=== PATIENT | female | born 1970 | race Caucasian/White ===

== ENCOUNTER → 2020-03-16 15:49 | Outpatient (CLI) | payer MEDICAID, SELFPAY ==
[2020-03-16 16:12] LABS: Basophils # 0.1 K/mm3 (0-0.2); Eosinophils # 0.2 K/mm3 (0.0-0.4); Eosinophils % 1.8 % (0.1-12.0); Hematocrit 51.8 % (37.0-47.0); Hemoglobin 16.8 g/dL (12.2-16.2); Lymphocytes # 2.6 K/mm3 (0.7-4.5); Lymphocytes % 24.2 % (10-50); Mean Corpuscular HGB Conc 32.4 g/dL (31.8-35.4); Mean Corpuscular Hemoglobin 29.7 pg (27.0-31.2); Mean Corpuscular Volume 91.7 fl (81-99); Mean Platelet Volume 8.2 fl (7.4-10.4); Monocytes # 0.7 K/mm3 (0.1-1.0); Monocytes % 6.3 % (1.7-9.3); Neutrophils # 7.3 K/mm3 (1.8-7.8); Neutrophils % 66.7 % (37.0-80.0); Platelet Count 363 K/mm3 (142-424); Red Blood Count 5.64 M/mm3 (4.20-5.40); Red Cell Distribution Width 13.1 % (11.5-17.5); White Blood Count 10.9 K/mm3 (4.8-10.8)
[2020-03-16 16:28] LABS: Alanine Aminotransferase 34 U/L (12-78); Albumin Level 4.5 g/dl (3.5-5.0); Albumin/Globulin Ratio 1.6 (1.1-1.8); Alkaline Phosphatase 126 U/L (38-126); Anion Gap 12.6 mEq/L (5-15); Aspartate Amino Transferase 37 U/L (14-36); Bilirubin,Total 0.5 mg/dl (0.2-1.3); Blood Urea Nitrogen 7 mg/dl (7-17); Calcium 9.7 mg/dl (8.4-10.2); Carbon Dioxide 26 mmol/L (22.0-30.0); Chloride 106 mmol/L (98-107); Chol/HDL Ratio 6.7 (1-3.5); Cholesterol 233 mg/dl (140-200); Estimated Glomerular Filt Rate 67 ml/min (>60); GFR (African American) 81 ML/MIN (>60); Globulin 2.8 g/dL (1.3-3.2); Glucose 107 mg/dl (74-100); HDL Cholesterol 35 mg/dl (40-60); Potassium 4.6 mmoL/L (3.5-5.1); Sodium 140 mmol/L (136-145); Total Protein,Serum 7.3 g/dl (6.3-8.2); Triglycerides 307 mg/dl (30-150); VLDL Cholesterol 61 mg/dL (0-40)
[2020-03-16 16:39] LABS: Direct LDL Cholesterol 165.76 mg/dL (100-129)
[2020-03-16 16:46] LABS: T4 (Thyroxine) 11.2 ug/dl (5.53-11.0)
[2020-03-16 16:59] LABS: Thyroid Stimulating Hormone 1.95 uIU/mL (0.465-4.68)
== END ==
PROVIDERS: Visit Provider Nurse Practitioner Family
DX: Z00.00 Encounter for general adult medical examination without abnormal findings (principal); I05.9 Rheumatic mitral valve disease, unspecified; I10 Essential (primary) hypertension; E78.5 Hyperlipidemia, unspecified
CPT/HCPCS: 80053; 80061; 84436; 84443; 85025

== ENCOUNTER → 2020-03-24 09:28 | Outpatient (CLI) | payer MEDICAID, SELFPAY | PROVIDERS: PCP Nurse Practitioner Family; Visit Provider Nurse Practitioner Family | DX: R06.02 Shortness of breath (principal) | CPT/HCPCS: 94060; 94618; 94726; 94729 ==

== ENCOUNTER → 2020-03-28 10:04 | Outpatient (CLI) | payer MEDICAID, SELFPAY ==
--- NOTE | 2020-03-28 10:05 | CA_ITS ---
APPROVED REPORT EXAM: Comprehensive 2D, Doppler, and color-flow Echocardiogram Rn Private Duty: Belle Chin RVT Ht: 5 ft 5 in Wt: 190lbs BSA: 1.94 BP: 124/87 mmHg Indications: MVP,SMOKER,EDEMA,HTN,HLD,GERD 2D Dimensions LVOT 2.13 cm (M/F) 1.5-2.5 M-Mode Dimensions RVDd 2.38 cm (0.9-2.6) LA Diam 2.98 cm (1.9-4.0) LVDd 3.76 cm (3.5-5.7) Ao Diam 2.67 cm (2.0-3.7) LVDs 2.66 cm (3.5-5.7) IVSd 1.32 cm (0.6-1.1) PWd 0.77 cm (0.6-1.1) EF (Teich) 57.00% FS 29.30% EDV (Teich) 60.40 mL ESV (Teich) 26.00 mL LV Diastology E Decel Time 213.00 (160-240 msec) E/A Ratio 0.7 MED E' 6.20 (< 7 cm/sec) E'/MED E' Ratio 7.45 (>14) LAT E' 7.80 (<10 cm/sec) E/LAT E' Ratio 5.92 (>14) Aortic Valve AO VTI 16.08 (18-25 cm) Mitral Valve MV E Max Buddy. 46.00 (40-130 cm/s) MV A Velocity 67.00 (40-130 cm/s) E/A Ratio 0.69 MV Decel. Time 213.00 (160-240 ms) MV PHT 62.00 ms Pulmonary Valve PV Peak Velocity 74.00 (50-150 cm/s) Left Ventricle Left atrium is mildly enlarged, left ventricle is normal size, mild concentric left ventricular hypertrophy, visually estimated ejection fraction 55% with no regional wall motion abnormality, grade 1 diastolic dysfunction seen without tissue Doppler evidence of raise left atrial pressure. Right Ventricle Right atrium and right ventricular normal size and contractility. Aortic Valve Aortic valve is grossly normal, there is no aortic stenosis or aortic insufficiency. Mitral Valve Mitral valve leaflets are minimally thickened, there is no obvious mitral valve prolapse seen in this study. There is mild mitral regurgitation. Tricuspid Valve Tricuspid valve is grossly normal, there is mild tricuspid regurgitation, tricuspid regurgitation jet velocity is inadequate for calculation of the right ventricular systolic pressure. Pulmonic Valve Pulmonic valve is poorly visualized. Great Vessels Aortic root is normal size. Pericardium No significant pericardial effusion noted. Conclusion 1. Mildly enlarged left atrium, normal left ventricular size, mild concentric left ventricular hypertrophy, visually estimated ejection fraction 55% with no regional wall motion abnormality, grade 1 diastolic dysfunction seen without tissue Doppler evidence of raise left atrial pressure. 2. No obvious mitral valve prolapse seen in the study, there is mild mitral regurgitation. 3. Mild tricuspid regurgitation. 4. No significant pericardial effusion noted. Electronically signed by : Nabil Rizvi, 03/29/2020 18:31:11
== END ==
PROVIDERS: PCP Nurse Practitioner Family; Visit Provider Nurse Practitioner Family
DX: I05.9 Rheumatic mitral valve disease, unspecified (principal)
CPT/HCPCS: 93306

== ENCOUNTER 2020-06-15 14:30 | Outpatient (RCR) | payer MEDICAID, SELFPAY ==
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
== END 2020-06-15 14:35 | disposition home or self-care (01) ==
LOC: PT 14:30
PROVIDERS: PCP Nurse Practitioner Family; Visit Provider Nurse Practitioner Family
DX: M54.5 Low back pain (principal)
CPT/HCPCS: 97010; 97014; 97035; 97110; 97163; G0283

== ENCOUNTER → 2020-08-01 13:28 | Outpatient (CLI) | payer MEDICAID, SELFPAY ==
--- NOTE | 2020-08-01 13:28 | MM_ITS ---
PROCEDURE: MM DIG SCREENING MAMM BI W/CAD Digital Breast Tomosynthesis Included CLINICAL INDICATION: Breast cancer screening There is a history of breast cancer patient's maternal great aunt. There has been a previous biopsy left breast for benign disease. COMPARISON: MG DMSB DIG MAMM-SCREEN SPARKLE from 04/05/2014 TECHNIQUE: Standard CC and MLO images and 3D Tomosynthesis was obtained. R2 CAD reviewed. FINDINGS: The breasts are composed primarily of fat with minimal scattered fibroglandular densities in each breast. There are couple of benign-appearing calcifications left breast. There is a tiny benign-appearing microcalcification in a right breast. There is a stable small benign-appearing nodular density upper-outer quadrant left breast, possibly intramammary node. There is no suspicious lesion and no suspicious microcalcifications. IMPRESSION: Fatty type breast parenchyma with no suspicious lesions seen BI-RAD Category: 2 Benign Finding(s) FOLLOW-UP: 1YR 1 Year Follow-up (A letter has been sent to the patient regarding results of the study.) Dictated by: Dr. Luis Enrique Martin MD 08/02/2020 14:39 Dr. Luis Enrique Martin MD in [place] 08/02/2020 14:39
== END ==
PROVIDERS: PCP Nurse Practitioner Family; Visit Provider Nurse Practitioner Family
DX: Z12.31 Encounter for screening mammogram for malignant neoplasm of breast (principal)
CPT/HCPCS: 77063; 77067

== ENCOUNTER → 2021-01-23 10:04 | Outpatient (CLI) | payer MEDICAID, SELFPAY ==
[2021-01-23 10:55] VITALS: PULSE 88; PULSE 90
== END ==
PROVIDERS: PCP Nurse Practitioner Family; Visit Provider Internal Medicine Pulmonary Disease
DX: R06.00 Dyspnea, unspecified (principal)
CPT/HCPCS: 94060; 94640; 94726; 94729

== ENCOUNTER → 2021-02-21 18:15 | Outpatient (CLI) | payer MEDICAID, SELFPAY ==
[2021-02-21 18:58] LABS: Basophils # 0.1 K/mm3 (0-0.2); Basophils % 1.1 % (0.1-2.0); Eosinophils # 0.2 K/mm3 (0.0-0.4); Eosinophils % 2.2 % (0.1-12.0); Hematocrit 47.6 % (37.0-47.0); Hemoglobin 15.5 g/dL (12.2-16.2); Lymphocytes # 2.5 K/mm3 (0.7-4.5); Lymphocytes % 31.1 % (10-50); Mean Corpuscular HGB Conc 32.5 g/dL (31.8-35.4); Mean Corpuscular Hemoglobin 29.4 pg (27.0-31.2); Mean Corpuscular Volume 90.3 fl (81-99); Mean Platelet Volume 9.3 fl (7.4-10.4); Monocytes # 0.4 K/mm3 (0.1-1.0); Neutrophils # 4.9 K/mm3 (1.8-7.8); Neutrophils % 60.7 % (37.0-80.0); Platelet Count 361 K/mm3 (142-424); Red Blood Count 5.27 M/mm3 (4.20-5.40); Red Cell Distribution Width 14.3 % (11.5-17.5); White Blood Count 8.1 K/mm3 (4.8-10.8)
[2021-02-21 19:47] LABS: Alanine Aminotransferase 33 U/L (12-78); Albumin Level 3.9 g/dl (3.5-5.0); Albumin/Globulin Ratio 1.4 (1.1-1.8); Alkaline Phosphatase 98 U/L (38-126); Aspartate Amino Transferase 48 U/L (14-36); Bilirubin,Total 0.3 mg/dl (0.2-1.3); Blood Urea Nitrogen 9 mg/dl (7-17); Calcium 9.4 mg/dl (8.4-10.2); Carbon Dioxide 25 mmol/L (22.0-30.0); Chloride 103 mmol/L (98-107); Chol/HDL Ratio 6.5 (1-3.5); Cholesterol 220 mg/dl (140-200); Estimated Glomerular Filt Rate 76 ml/min (>60); GFR (African American) 92 ML/MIN (>60); Globulin 2.7 g/dL (1.3-3.2); Glucose 111 mg/dl (74-100); HDL Cholesterol 34 mg/dl (40-60); Sodium 138 mmol/L (136-145); Total Protein,Serum 6.6 g/dl (6.3-8.2); Triglycerides 312 mg/dl (30-150); VLDL Cholesterol 62 mg/dL (0-40)
[2021-02-21 19:59] LABS: Direct LDL Cholesterol 146.47 mg/dL (100-129)
[2021-02-21 20:03] LABS: Hemoglobin A1C 5.9 % (4.0-6.0)
[2021-02-21 20:04] LABS: T4 (Thyroxine) 10.4 ug/dl (5.53-11.0)
[2021-02-21 20:17] LABS: Thyroid Stimulating Hormone 1.21 uIU/mL (0.465-4.68)
== END ==
PROVIDERS: Visit Provider Nurse Practitioner Family
DX: Z83.3 Family history of diabetes mellitus (principal); Z79.899 Other long term (current) drug therapy
CPT/HCPCS: 80053; 80061; 83036; 84436; 84443; 85025

== ENCOUNTER 2021-05-16 17:30 | Outpatient (RCR) | payer MEDICAID, SELFPAY ==
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
--- NOTE | 2021-05-04 10:46 | HMH.RHREAS ---
Rehab Reassessment Rehab OP Re-assessment Start: 05/04/21 10:39 Freq: Status: Active Protocol: Document 05/04/21 10:40 JUDY (Rec: 05/04/21 10:46 JUDY [id number]) Electronically Signed By Doug Zamora, PT 05/04/21 10:40 Rehab Re-assessment Subjective Subjective Patient reports 0% improvement since start of care. Objective Objective Notes AROM: Flx 47; ext 11; SBr 17; SBl 25 MMT:BLE hip flx 4-/5; HS 4/5; Quad 4/5; ant tib 4-/5; gastroc 4/5 Pain: 8/10 currently; 5/10 at best over past week Neuro: intermittent NT to L5/ S1 dermatomes Assessment Progress Assessment No Progress Assessment Notes Patient has been seen for 2 treatment visits to date. Progress has not been made secondary to illness and questionable compliance with HEP. PT stressed importance of participation in HEP and follow-up visits to provided any improvements. Persistent functional limitations with all prolonged standing/walking , bending and lifting activities. Patient goals met None Goals Not Met All Revised Goals NA Plan Plan Continue with current POC. Frequency of Therapy 2x/week Duration of therapy 4 weeks Time and Billing Re-Eval Time 15 Re-Eval Billing Units 1 PHYSICIAN CERTIFICATION: I certify the specified therapy services for Sada Sharma are required, authorized, and reviewed every 30 days.
== END 2021-05-16 17:35 | disposition home or self-care (01) ==
LOC: PT 17:30
PROVIDERS: Visit Provider Nurse Practitioner Family
DX: M54.9 Dorsalgia, unspecified (principal); M54.50 Low back pain, unspecified
CPT/HCPCS: 97010; 97014; 97110; 97163; 97164; G0283

== ENCOUNTER → 2021-05-31 13:36 | Outpatient (CLI) | payer MEDICAID, SELFPAY | PROVIDERS: PCP Nurse Practitioner Family; Visit Provider Nurse Practitioner Family | DX: G47.33 Obstructive sleep apnea (adult) (pediatric) (principal); R06.83 Snoring | CPT/HCPCS: 95806 ==

== ENCOUNTER → 2021-06-05 16:26 | Outpatient (CLI) | payer MEDICAID, SELFPAY ==
--- NOTE | 2021-06-05 16:29 | XR_ITS ---
PROCEDURE INFORMATION: Exam: XR Entire Spine, 6 or More Views, Scoliosis Exam date and time: 06/05/2021 4:29 PM Age: 51 years old Clinical indication: Low back pain; Additional info: Chronic back pain TECHNIQUE: Imaging protocol: XR of the entire spine. 6 or more views. Evaluation for scoliosis. COMPARISON: CR XR RIBS RT MIN 3V W CXR1V 02/11/2019 4:49 AM FINDINGS: Vertebrae: Thoracic spine: Mild thoracic spine level curvature. Intervertebral disc spaces appear well preserved. Mild multilevel decrease in intervertebral disc space. Vertebral body heights are well preserved. There is no evidence of acutely displaced fractures. There is no evidence of joint dislocation. No aggressive osseous lesions. Spinal canal is patent. Lumbar spine: Lumbar spine alignment is well preserved. Intervertebral disc spaces appear grossly well preserved. Vertebral body heights are well preserved. There is no evidence of acutely displaced fractures. There is no evidence of joint dislocation. No aggressive osseous lesions. The spinal canal is patent. Mild facet joint hypertrophy is noted. No pars interarticularis defects are appreciated. For Gastrointestinal tract: Nonobstructive bowel gas pattern. Soft tissues: There is no significant soft tissue swelling. Other findings: Visualized chest is unremarkable. IMPRESSION: Mild multilevel degenerative changes in the thoracic and lumbar spine without acute skeletal pathology. Note that there is very minimal thoracic spine level curvature.
== END ==
PROVIDERS: PCP Nurse Practitioner Family; Visit Provider Family Medicine
DX: M54.6 Pain in thoracic spine (principal); M54.50 Low back pain, unspecified; G89.29 Other chronic pain
CPT/HCPCS: 72084

== ENCOUNTER → 2021-07-04 14:06 | Outpatient (CLI) | payer MEDICAID, SELFPAY | PROVIDERS: PCP Nurse Practitioner Family; Visit Provider Physician Assistant | DX: R00.2 Palpitations (principal); I10 Essential (primary) hypertension; E78.5 Hyperlipidemia, unspecified; G47.30 Sleep apnea, unspecified | CPT/HCPCS: 93270 ==

== ENCOUNTER → 2021-07-11 08:29 | Outpatient (CLI) | payer MEDICAID, SELFPAY ==
--- NOTE | 2021-07-11 08:30 | CA_ITS ---
APPROVED REPORT EXAM: Comprehensive 2D, Doppler, and color-flow Echocardiogram Head Correction Officer: MEHUL New, RVS Ht: 5 ft 5 in Wt: 194lbs BSA: 1.95 BP: 124/76 mmHg Indications: Chest Pain, Mitral Valve Prolapse, Palpitations, Smoker, HTN, HLD, CHEVY 2D Dimensions Aortic Root 3.19 cm LA Volume 50.60 mL Left Atrium 3.40 cm LA Volume Index 25.90 mL/m2 (M/F) 16-34 LVOT 1.89 cm (M/F) 1.5-2.5 M-Mode Dimensions RVDd 2.72 cm (0.9-2.6) LA Diam 3.40 cm (1.9-4.0) LVDd 4.61 cm (3.5-5.7) Ao Diam 3.28 cm (2.0-3.7) LVDs 2.88 cm (3.5-5.7) IVSd 1.04 cm (0.6-1.1) PWd 0.82 cm (0.6-1.1) EF (Teich) 66.80% EPSs 0.61 cm FS 36.80% EDV (Teich) 95.40 mL TAPSE 2.14 (<1.7) ESV (Teich) 31.70 mL LV Diastology E Decel Time 263.00 (160-240 msec) E/A Ratio 0.74 MED E' 6.20 (< 7 cm/sec) MED A' 10.10 cm/s E'/MED E' Ratio 7.52 (>14) LAT E' 7.10 (<10 cm/sec) LAT A' 12.20 cm/s E/LAT E' Ratio 6.56 (>14) Aortic Valve LVOT Max 86.00 (70-110 cm/s) LVOT VTI 18.64 cm AoV Peak Buddy. 104.00 (50-130 cm/s) AO Peak GR. 4.30 mmHg AO Mean GR. 2.80 (<5 mmHg) AO VTI 25.79 (18-25 cm) ILYA (VTI) 2.03 (2.5-4.5 cm2) Mitral Valve MV A Velocity 63.00 (40-130 cm/s) E/A Ratio 0.74 MV Decel. Time 263.00 (160-240 ms) Pulmonary Valve PV Peak Velocity 67.00 (50-150 cm/s) Tricuspid Valve TR P. Velocity 175.00 cm/s RAP Estimate 10.00 mmHg RVSP 22.30 mmHg Left Ventricle Left atrium is qualitatively mildly enlarged, left ventricle is normal size, left ventricle wall thickness is upper limit of the normal, there is preserved left ventricular systolic function, visually estimated ejection fraction 55% with no regional wall motion abnormality, grade 1 diastolic dysfunction seen without tissue Doppler evidence of raise left atrial pressure. Right Ventricle Right atrium and right ventricle are normal size and contractility. Aortic Valve Aortic valve is grossly normal, there is no aortic stenosis or aortic insufficiency. Mitral Valve Mitral valve grossly normal, there is trace mitral regurgitation, there is no obvious mitral valve prolapse seen. Tricuspid Valve Tricuspid valve grossly normal, there is trace tricuspid regurgitation, tricuspid regurgitation jet velocity is inadequate for calculation of the right ventricular systolic pressure. Pulmonic Valve Pulmonic valve is poorly visualized. Great Vessels Aortic root is normal size. Inferior vena cava normal size with normal inspiratory collapse. Pericardium No significant pericardial effusion noted. Conclusion 1. Normal left ventricular size, preserved ventricular systolic function, visually estimated ejection fraction 55% with no regional wall motion abnormality, grade 1 diastolic emergency without tissue Doppler evidence of raise left atrial pressure. 2. Moderate mitral valve prolapse seen, there is trace mitral regurgitation. 3. Trace tricuspid regurgitation 4. No significant pericardial effusion. 5. Inferior vena cava normal size with normal inspiratory collapse. Electronically signed by : Nabil Rizvi MD 07/11/2021 18:41:22
== END ==
PROVIDERS: PCP Nurse Practitioner Family; Visit Provider Physician Assistant
DX: R01.1 Cardiac murmur, unspecified (principal); R00.2 Palpitations; I10 Essential (primary) hypertension; E78.5 Hyperlipidemia, unspecified; G47.30 Sleep apnea, unspecified
CPT/HCPCS: 93306

== ENCOUNTER → 2021-07-27 07:16 | Outpatient (CLI) | payer MEDICAID, SELFPAY ==
--- NOTE | 2021-07-27 | CA_ITS ---
APPROVED REPORT Exam: Pharmacologic Technologist: Angeles Alejandra, Ht: 5 ft 5 in Wt: 196 lbs BSA: 1.96 m2 HR: 75 bpm BP: 120/85 mmHg Rhythm: NSR, POOR R WAVE PROGRESSION, RIGHTWARD AXIS Medical History Medical History: HTN, Hyperlipidemia Medications: Omeprazole,,,,, Aspirin,,,,, Metoprolol,,,,, Gabapentin,,,,, Flonase,,,,, SyMBICORT,,,,, Estradial,,,,, Albuterol,,,,, Tramadol,,,,, Tizanidine,,,,, Levocetirizine,,,,, SpirOnolactone,,,,, Allergies: UNKNOWN ANTIBIOTIC Cardiac Risk Factors: HTN, Hyperlipidemia, FHX of CAD, Smoking Stress Test Details Test: LEXISCAN HR Resting HR: 78 bpm Max Heart Rate (APMHR): 170.344616 bpm Max HR Achieved: 112 bpm Target HR (85% APMHR): 144.995040 bpm % of APMHR: 65.88 Recovery HR: 93 bpm BP Resting BP: 120/85 mmHg Max BP: 137/92 mmHg Recovery BP: 131.0/90.0 mmHg ECG Resting ECG: NSR, POOR R WAVE PROGRESSION, RIGHTWARD AXIS Clinical Exercise duration: 04:01 min Highest Stage Achieved: Stress ECG Conclusion PT HAD SOA, LIGHT-HEADED, MALAISE. NO CP. NO SIGNIFICANT CHANGES. UNREMARKABLE LEXISCAN STRESS. MYOVIEW IMAGES REPORTED SEPARATELY. Electronically signed by : Nabil Rizvi MD 07/28/2021 09:39:14
--- NOTE | 2021-07-27 07:16 | NM_ITS ---
APPROVED REPORT Exam: Nuclear Stress Test Indication: HTN, HYPERLIPIDEMIA, TOB USE, FM HX, C.P., FATIGUE Patient Location: Outpatient Stress Tech: Rachell Hernandez [place] Tech:NATALIA Cruz RT(R)(N) Ht: 5 ft 5 in Wt: 190 lbs Bra Size: XL HR: 75 bpm BP: 120/85 mmHg BSA: 1.94 m2 BMI: 31.6 History: HTN, HYPERLIPIDEMIA, TOB USE, FM HX, C.P., FATIGUE Procedure: Patient received a 0.4 mg of intravenous Lexiscan, resting heart rate 75 bpm, resting blood pressure 120/85 mmHg, with Lexiscan maximum heart rate achived was 112 bpm which is Less than 85 % of the maximum predicted heart rate and blood pressure was 135/85 mmHg. With Lexiscan, patient denied any complaint of chest pain. Electrocardiogram Resting electrocardiogram shows sinus rhythm, with Lexiscan there is less than 1.[address] segment depression noted from the baseline EKG. The EKG portion of the Lexiscan is nondiagnostic. Cardiac Stress and Resting SPECT Images: Cardiac Stress and Resting SPECT images were obtained using technetium 99m Myoview 31.5 mCi stress and 10.37 mCi at rest. Gated SPECT for analysis of segmental wall motion and calculation of the ejection fraction also done. Prone images were also obtained. Cardiac stress and resting SPECT images show uniform myocardial activity without segmental perfusion abnormality, computer derived ejection fraction 55% with no regional wall motion abnormality, there is transient ischemic dilatation of the left ventricle noted. Right ventricle is normal size and contractility. Conclusion: 1. The EKG portion of the Lexiscan is nondiagnostic. 2. No scintigraphic evidence of reversible ischemia seen, computer derived ejection fraction is 55% with no regional wall motion abnormality, there is transient ischemic dilatation of the left ventricle noted, left ventricle is normal size and contractility. 3. Abnormal Lexiscan Myoview study due to transient ischemic dilatation, the other causes for the transient ischemic dilatation include microvascular disease, elevated left ventricular end-diastolic pressure, diabetes mellitus and hypertensive heart disease. Clinical correlation is recommended. Electronically signed by : Nabil Rizvi MD 07/28/2021 09:43:33
== END ==
PROVIDERS: PCP Nurse Practitioner Family; Visit Provider Physician Assistant
DX: R06.00 Dyspnea, unspecified (principal); R07.89 Other chest pain; R00.2 Palpitations; I10 Essential (primary) hypertension; E78.5 Hyperlipidemia, unspecified; G47.30 Sleep apnea, unspecified
CPT/HCPCS: 78452; 93017; A9502; J2785

== ENCOUNTER → 2021-08-08 15:28 | Outpatient (CLI) | payer MEDICAID, SELFPAY ==
[2021-08-08 16:09] LABS: Basophils # 0.2 K/mm3 (0-0.2); Basophils % 1.3 % (0.1-2.0); Eosinophils # 0.3 K/mm3 (0.0-0.4); Eosinophils % 2.1 % (0.1-12.0); Hematocrit 48.2 % (37.0-47.0); Lymphocytes # 3.5 K/mm3 (0.7-4.5); Lymphocytes % 30.2 % (10-50); Mean Corpuscular HGB Conc 33.2 g/dL (31.8-35.4); Mean Corpuscular Hemoglobin 30.5 pg (27.0-31.2); Mean Corpuscular Volume 91.6 fl (81-99); Mean Platelet Volume 7.6 fl (7.4-10.4); Monocytes # 0.6 K/mm3 (0.1-1.0); Monocytes % 5.3 % (1.7-9.3); Neutrophils # 7.1 K/mm3 (1.8-7.8); Platelet Count 415 K/mm3 (142-424); Red Blood Count 5.26 M/mm3 (4.20-5.40); Red Cell Distribution Width 13.4 % (11.5-17.5); White Blood Count 11.7 K/mm3 (4.8-10.8)
[2021-08-08 17:46] LABS: Anion Gap 12.3 mEq/L (5-15); Blood Urea Nitrogen 3 mg/dl (7-17); Calcium 8.9 mg/dl (8.4-10.2); Carbon Dioxide 27 mmol/L (22.0-30.0); Chloride 104 mmol/L (98-107); Estimated Glomerular Filt Rate 76 ml/min (>60); GFR (African American) 92 ML/MIN (>60); Glucose 85 mg/dl (74-100); Potassium 4.3 mmoL/L (3.5-5.1); Sodium 139 mmol/L (136-145)
== END ==
PROVIDERS: Visit Provider Physician Assistant
DX: Z01.812 Encounter for preprocedural laboratory examination (principal); Z11.52 Encounter for screening for COVID-19; R06.00 Dyspnea, unspecified; I20.8 Other forms of angina pectoris; I34.1 Nonrheumatic mitral (valve) prolapse; I10 Essential (primary) hypertension; E78.5 Hyperlipidemia, unspecified; R94.31 Abnormal electrocardiogram [ECG] [EKG]; R94.39 Abnormal result of other cardiovascular function study; I63.9 Cerebral infarction, unspecified; F17.200 Nicotine dependence, unspecified, uncomplicated; G47.30 Sleep apnea, unspecified
CPT/HCPCS: 36415; 80048; 85025; C9803; U0003; U0005

== ENCOUNTER 2021-08-10 08:43 | Day surgery (SDC) | payer MEDICAID, SELFPAY ==
[2021-08-10] VITALS (14 sets, daily range): BP systolic 96–127; BP diastolic 47–85; PULSE 58–85; RESP 20; TEMP 36.1; O2SAT 92–99; BMI 32.3
--- NOTE | 2021-08-10 07:06 | IR_ITS ---
APPROVED REPORT Patient Location: Outpatient Director Of Primary: NATALIA Winter RT (R) PROCEDURES Left heart catheterization Left ventriculogram Selective coronary angiogram INDICATION Abnormal Myoview, Angina pectoris Informed consent was obtained prior to the procedure. COMPLICATIONS None Estimated Blood Loss: Less than 10 ML TECHNIQUE One percent lidocaine was used to anesthetize the right groin. The right femoral artery was accessed via the Seldinger technique. A 4-Turkish sheath was placed in the right femoral artery. The JL-4 and JR-4 catheter was also used to perform left heart catheterization left ventriculogram and selective coronary angiogram. At the end of the procedure the patient was transferred to the post-op holding area in stable condition for arterial sheath removal. ANGIOGRAPHIC RESULTS The left main artery Normal The left anterior descending artery Normal The circumflex artery Normal The right coronary artery Dominant normal The HERNANDEZ ventriculogram reveals Hyperdynamic 75% The left ventricular end-diastolic pressure 30 mmHg IMPRESSION Normal coronary arteries Hyperdynamic ventricle consistent with diastolic dysfunction PLAN 1. Treatment of diastolic dysfunction 2. Avoidance of pop 3. Weight loss 4. Cardiac rehabilitation Electronically signed by : Durga Oquendo MD 08/11/2021 11:01:48
== END 2021-08-10 15:13 | disposition home or self-care (01) ==
LOC: CATHLAB 08:44
PROVIDERS: PCP Nurse Practitioner Family; Visit Provider Internal Medicine
DX: I25.118 Atherosclerotic heart disease of native coronary artery with other forms of angina pectoris (principal); I34.1 Nonrheumatic mitral (valve) prolapse; I10 Essential (primary) hypertension; F17.210 Nicotine dependence, cigarettes, uncomplicated; E78.5 Hyperlipidemia, unspecified; G47.30 Sleep apnea, unspecified
CPT/HCPCS: 93458; 99152; C1725; C1769; J1644; Q9967

== ENCOUNTER → 2021-09-12 12:03 | Outpatient (CLI) | payer MEDICAID, SELFPAY ==
[2021-09-12 13:25] LABS: Anion Gap 9.7 mEq/L (5-15); Blood Urea Nitrogen 6 mg/dl (7-17); Calcium 8.9 mg/dl (8.4-10.2); Carbon Dioxide 25 mmol/L (22.0-30.0); Chloride 107 mmol/L (98-107); Estimated Glomerular Filt Rate 89 ml/min (>60); GFR (African American) 107 ML/MIN (>60); Glucose 139 mg/dl (74-100); Potassium 3.7 mmoL/L (3.5-5.1); Sodium 138 mmol/L (136-145)
== END ==
PROVIDERS: PCP Nurse Practitioner Family; Visit Provider Physician Assistant
DX: R00.2 Palpitations (principal); I10 Essential (primary) hypertension; I34.1 Nonrheumatic mitral (valve) prolapse; E78.5 Hyperlipidemia, unspecified; G47.30 Sleep apnea, unspecified
CPT/HCPCS: 36415; 80048

== ENCOUNTER → 2022-03-08 11:47 | Outpatient (CLI) | payer MEDICAID, SELFPAY ==
[2022-03-08 13:13] LABS: Alanine Aminotransferase 53 U/L (12-78); Albumin Level 4.1 g/dl (3.5-5.0); Alkaline Phosphatase 106 U/L (38-126); Aspartate Amino Transferase 72 U/L (14-36); Bilirubin,Indirect 0.3 mg/dL (0.0-0.9); Bilirubin,Total 0.3 mg/dl (0.2-1.3); Bilirubin,Unconjugated 0.4 mg/dL (0.0-1.1); Chol/HDL Ratio 6.5 (1-3.5); Cholesterol 221 mg/dl (140-200); HDL Cholesterol 34 mg/dl (40-60); Total Protein,Serum 6.8 g/dl (6.3-8.2); Triglycerides 252 mg/dl (30-150); VLDL Cholesterol 50 mg/dL (0-40)
[2022-03-08 13:24] LABS: Direct LDL Cholesterol 148.83 mg/dL (100-129)
== END ==
PROVIDERS: PCP Nurse Practitioner Family; Visit Provider Physician Assistant
DX: E78.5 Hyperlipidemia, unspecified (principal); I10 Essential (primary) hypertension; I34.1 Nonrheumatic mitral (valve) prolapse; R60.0 Localized edema
CPT/HCPCS: 36415; 80061; 80076

== ENCOUNTER → 2022-03-15 13:54 | Outpatient (CLI) | payer MEDICAID, SELFPAY ==
[2022-03-15 13:14] LABS: Basophils # 0.1 K/mm3 (0-0.2); Eosinophils # 0.2 K/mm3 (0.0-0.4); Hematocrit 48.3 % (37.0-47.0); Lymphocytes # 2.7 K/mm3 (0.7-4.5); Lymphocytes % 22.2 % (10-50); Mean Corpuscular HGB Conc 33.1 g/dL (31.8-35.4); Mean Corpuscular Hemoglobin 29.2 pg (27.0-31.2); Mean Corpuscular Volume 88.1 fl (81-99); Mean Platelet Volume 8.3 fl (7.4-10.4); Monocytes # 0.8 K/mm3 (0.1-1.0); Monocytes % 6.8 % (1.7-9.3); Neutrophils # 8.2 K/mm3 (1.8-7.8); Neutrophils % 67.9 % (37.0-80.0); Platelet Count 408 K/mm3 (142-424); Red Blood Count 5.49 M/mm3 (4.20-5.40); Red Cell Distribution Width 13.6 % (11.5-17.5); White Blood Count 12.1 K/mm3 (4.8-10.8)
[2022-03-15 13:18] LABS: Alanine Aminotransferase 47 U/L (12-78); Albumin Level 4.3 g/dl (3.5-5.0); Albumin/Globulin Ratio 1.5 (1.1-1.8); Alkaline Phosphatase 126 U/L (38-126); Anion Gap 16.2 mEq/L (5-15); Aspartate Amino Transferase 69 U/L (14-36); Bilirubin,Total 0.4 mg/dl (0.2-1.3); Blood Urea Nitrogen 4 mg/dl (7-17); Calcium 9.2 mg/dl (8.4-10.2); Carbon Dioxide 25 mmol/L (22.0-30.0); Chloride 101 mmol/L (98-107); Chol/HDL Ratio 5.4 (1-3.5); Cholesterol 174 mg/dl (140-200); Estimated Glomerular Filt Rate 66 ml/min (>60); GFR (African American) 80 ML/MIN (>60); Globulin 2.8 g/dL (1.3-3.2); Glucose 96 mg/dl (74-100); HDL Cholesterol 32 mg/dl (40-60); Potassium 4.2 mmoL/L (3.5-5.1); Sodium 138 mmol/L (136-145); Total Protein,Serum 7.1 g/dl (6.3-8.2); Triglycerides 286 mg/dl (30-150); VLDL Cholesterol 57 mg/dL (0-40)
[2022-03-15 13:29] LABS: Direct LDL Cholesterol 97.85 mg/dL (100-129)
[2022-03-15 13:48] LABS: Thyroid Stimulating Hormone 1.77 uIU/mL (0.465-4.68)
== END ==
PROVIDERS: PCP Nurse Practitioner Family; Visit Provider Nurse Practitioner Family
DX: E11.9 Type 2 diabetes mellitus without complications (principal); I10 Essential (primary) hypertension; R53.83 Other fatigue; E78.1 Pure hyperglyceridemia
CPT/HCPCS: 80053; 80061; 83036; 84443; 85025

== ENCOUNTER → 2022-06-13 15:26 | Outpatient (CLI) | payer MEDICAID, SELFPAY ==
--- NOTE | 2022-06-13 15:26 | CT_ITS ---
FINAL REPORT CLINICAL HISTORY: lung cancer screening, currently smokes less than 1 pack per day x30 years COMPARISON: Report dated February 11, 2019 FINDINGS: Low-Dose Chest CT Axial images were obtained from the lung apex to the mid abdomen by computed tomography. Low-dose protocol was utilized. CTDI vol (mGy): 2.90 DLP (mGy-cm): 106.81 There is no axillary adenopathy. There is no hilar or mediastinal adenopathy. The heart is proper size. There is no pericardial or pleural effusion. Lung window images demonstrate mild pulmonary scarring. There is a 4 mm inferior right middle lobe nodule on image 59. There is a 4 mm right lower lobe nodule on image 54 and a 4 mm lingular nodule on image 42. There is a 3 mm left lower lobe nodule on image 56. Limited images of the upper abdomen are unremarkable. IMPRESSION: Lung RADS category 2. Recommend 12 month follow-up low-dose chest CT. Reviewed, Interpreted and Dictated by Stu Banerjee III, MD Transcribed by Bettina Epstein Authenticated and [facility]
== END ==
PROVIDERS: PCP Nurse Practitioner Family; Visit Provider Internal Medicine Pulmonary Disease
DX: Z87.891 Personal history of nicotine dependence (principal); Z12.2 Encounter for screening for malignant neoplasm of respiratory organs
CPT/HCPCS: 71271

== ENCOUNTER 2023-07-11 09:50 | Outpatient (CLI) | payer MEDICAID, SELFPAY ==
[2023-07-11] MEDS: ALBUTEROL 0.083% 2.5 MG/3 ML NEB IH (10:59)
== END 2023-07-11 23:59 ==
LOC: RT 09:51
PROVIDERS: PCP Nurse Practitioner Family; Visit Provider Internal Medicine Pulmonary Disease
DX: R06.09 Other forms of dyspnea (principal)
CPT/HCPCS: 94060; 94618; 94726; 94729

== ENCOUNTER 2023-08-28 11:28 | Outpatient (CLI) | payer MEDICAID, SELFPAY ==
[2023-08-28 11:34] LABS: Basophils # 0.2 K/mm3 (0-0.2); Basophils % 1.6 % (0.1-2.0); Eosinophils # 0.2 K/mm3 (0.0-0.4); Hematocrit 49.5 % (37.0-47.0); Hemoglobin 16.2 g/dL (12.2-16.2); Lymphocytes # 3.2 K/mm3 (0.7-4.5); Mean Corpuscular HGB Conc 32.8 g/dL (31.8-35.4); Mean Corpuscular Hemoglobin 30.9 pg (27.0-31.2); Mean Platelet Volume 8.4 fl (7.4-10.4); Monocytes # 0.5 K/mm3 (0.1-1.0); Monocytes % 4.7 % (1.7-9.3); Neutrophils # 7.2 K/mm3 (1.8-7.8); Neutrophils % 63.7 % (37.0-80.0); Platelet Count 361 K/mm3 (142-424); Red Blood Count 5.26 M/mm3 (4.20-5.40); Red Cell Distribution Width 13.7 % (11.5-17.5); White Blood Count 11.4 K/mm3 (4.8-10.8)
[2023-08-28 12:21] LABS: Chloride 109 mmol/L (98-107); Sodium 140 mmol/L (136-145)
[2023-08-28 12:22] LABS: Potassium 4.9 mmoL/L (3.5-5.1)
[2023-08-28 12:24] LABS: Alanine Aminotransferase 25 U/L (12-78); Albumin Level 4.3 g/dl (3.5-5.0); Albumin/Globulin Ratio 1.5 (1.1-1.8); Alkaline Phosphatase 93 U/L (38-126); Amylase 81 U/L (30-110); Anion Gap 11.9 mEq/L (5-15); Aspartate Amino Transferase 29 U/L (14-36); Bilirubin,Total 0.4 mg/dl (0.2-1.3); Blood Urea Nitrogen 4 mg/dl (7-17); Calcium 9.8 mg/dl (8.4-10.2); Carbon Dioxide 24 mmol/L (22.0-30.0); Estimated Glomerular Filt Rate 66 ml/min (>60); GFR (African American) 80 ML/MIN (>60); Globulin 2.8 g/dL (1.3-3.2); Glucose 95 mg/dl (74-100); HDL Cholesterol 36 mg/dl (40-60); Lipase 120 U/L (23-300); Total Protein,Serum 7.1 g/dl (6.3-8.2)
[2023-08-28 12:25] LABS: Chol/HDL Ratio 8.1 (1-3.5); Cholesterol 291 mg/dl (140-200); Triglycerides 329 mg/dl (30-150); VLDL Cholesterol 66 mg/dL (0-40)
[2023-08-28 12:35] LABS: Direct LDL Cholesterol 172.52 mg/dL (100-129)
[2023-08-28 12:56] LABS: Thyroid Stimulating Hormone 1.07 uIU/mL (0.465-4.68)
== END 2023-08-28 23:59 ==
LOC: LAB.DROPOF 11:28
PROVIDERS: PCP Nurse Practitioner Family; Visit Provider Nurse Practitioner Family
DX: R10.11 Right upper quadrant pain (principal); E55.9 Vitamin D deficiency, unspecified; Z68.30 Body mass index [BMI] 30.0-30.9, adult
CPT/HCPCS: 80053; 80061; 82150; 82306; 83690; 84443; 85025

== ENCOUNTER 2023-09-04 08:39 | Outpatient (CLI) | payer MEDICAID, SELFPAY ==
--- NOTE | 2023-09-04 08:40 | US_ITS ---
FINAL REPORT CLINICAL HISTORY: RUQ Pain COMPARISON: None FINDINGS: Sonographic images of the right upper quadrant were obtained. The pancreas is normal in appearance.The liver has an unremarkable appearance.The gallbladder appears normal without evidence of gallstones.There is no evidence of biliary ductal dilatation.The common duct measures 4mm. Limited images of the right kidney are unremarkable. IMPRESSION: Unremarkable right upper quadrant ultrasound. Reviewed, Interpreted and Dictated by Stu Banerjee III, MD Transcribed by Delia Bauman Authenticated and [facility]
== END 2023-09-04 23:59 ==
LOC: RAD 08:40
PROVIDERS: PCP Nurse Practitioner Family; Visit Provider Nurse Practitioner Family
DX: R10.11 Right upper quadrant pain (principal)
CPT/HCPCS: 76705

== ENCOUNTER 2023-09-30 10:12 | Outpatient (CLI) | payer MEDICAID, SELFPAY ==
--- NOTE | 2023-09-30 10:12 | NM_ITS ---
FINAL REPORT TECHNIQUE: The patient was injected with 8mCi of technetium 99m Choletec and subsequently 1.7 mcg of Kinevac. Images of the abdomen were obtained for one hour. CLINICAL HISTORY: RUQ pain, GB US WNL 10:40AM 8.40 MCI TC CHOLETEC 1.7 MCG CCK NO PAIN WITH CCK FINDINGS: Hepatic uptake is normal. There is gallbladder and small bowel activity at 30 minutes. Post Kinevac images render an ejection fraction of 25% IMPRESSION: Normal hepatobiliary scan. Abnormally low ejection fraction. Reviewed, Interpreted and Dictated by Negro Bloom MD Transcribed by Whit Hamilton Authenticated and . [facility]
[2023-09-30] MEDS: ISOTOPE CHOLETECH;1 DOSE (UP TO 15 MCI) IV (10:51)
[2023-09-30] MEDS: SODIUM CHLORIDE 0.9% 10ML SYR (RAD ONLY) 10 ML IV (10:51)
[2023-09-30] MEDS: SINCALIDE 1.7 MCG in 0.9 % SODIUM CHLORIDE 50 ML 100 MCG IV (12:15)
== END 2023-09-30 23:59 | disposition home or self-care (01) ==
LOC: RAD 10:12
PROVIDERS: PCP Nurse Practitioner Family; Visit Provider Nurse Practitioner Family
DX: R10.11 Right upper quadrant pain (principal)
CPT/HCPCS: 78227; A9537; J2805

== ENCOUNTER 2023-11-12 10:36 | Day surgery (SDC) | payer MEDICAID, SELFPAY ==
[2023-11-08 14:11] VITALS: BMI 29.9
[2023-11-12 10:55] VITALS: BP 121/81; PULSE 65; RESP 16; TEMP 36.3; O2SAT 98
[2023-11-12] MEDS: LACTATED RINGERS 1000ML 1,000 ML 25 ML IV (11:00)
--- NOTE | 2023-11-12 11:19 | HMH.SCOPE ---
Procedure: Date: 11/12/23 Patient Date of :: 1970 Procedure Performed:: Esophagogastroduodenoscopy with biopsy Indications:: Epigastric pain Performing Provider:: German Gomes MD Referring Provider:: . Sedation:: Monitored anesthesia care Procedure:: After informed consent was obtained the patient was taken to the endoscopy suite. Sedation ensued after the patient was transferred to the left lateral decubitus position. Pulse, blood pressure, and oxygen saturation were monitored throughout the procedure. The endoscope was advanced beyond the duodenal bulb. Retroflexion within the gastric lumen was accomplished. The gastroscope was carefully removed and the patient was transferred to recovery in stable condition. Please see findings and specimens below for detail. Findings:: Small sliding hiatal hernia Minimal gastritis Specimens:: Antral biopsy Recommendations:: Follow-up pathology Discussion with regard to possible biliary pathology will be ongoing Complications:: No immediate Estimated blood obtained (mL): 1 Colonoscopy Component Colonoscopy Component Was a colonoscopy performed during today's procedure?: No
--- NOTE | 2023-11-12 11:22 | P.PNANES_ITS ---
[facility] Disclaimer: The information contained in this section may have been updated after the patient was seen, as this information can be updated by other users. Medical History Multiple lung nodules on CT Encounter for screening for malignant neoplasm of lung History of smoking 30 or more pack years Smoking greater than 30 pack years Tobacco abuse disorder Tobacco abuse counseling Mild persistent asthma Abnormal PFT Dyspnea on exertion Shortness of breath Abnormal cardiovascular stress test Atypical angina Dyspnea Chest pain Palpitations Surgical History History of hysterectomy History of section History of appendectomy Family History Other Asthma COPD (chronic obstructive pulmonary disease) Hypertension Social History Smoking Status: Former smoker tobacco type: cigarettes packs per day: 1 smoking status stop date: 07/01/2022 alcohol intake: never substance use type: denies use current occupational status: unemployed Travel in the last 8 weeks: None household members: spouse and children housing: house caffeine: Yes [facility] Anesthesia Checklist Patient Identification Patient Identification: Arm Band and Verbal (Name & ) Structural Data Admitted From: Home Planned Operative Procedure/s: EGD Consent for Planned Operative Procedure(s) Verified: Yes Verified Documents: Surgical Consent and History and Physical NPO Status Verified Time NPO: 00:00 Additional verifications Anesthesia Reactions: No Airway Assessment Mallampati Score:: Class II C-Spine Mobility Assessed: Yes TMJ Mobility Assessed: Yes Dentition: Edentulous Neurological Assessment Level of Consciousness: Awake Hx Seizures: Yes (None since age 13) Numbness or tingling in extremities: No Anesthesia Plan Anesthesia Risk discussed: Yes Anesthesia Plan: Verified ASA Class: II Anesthesia Type: MAC
[2023-11-12 11:26] VITALS: O2SAT 98
[2023-11-12 11:41] VITALS: BP 100/65; PULSE 76; RESP 14; TEMP 36.3; O2SAT 91
[2023-11-12 11:51] VITALS: BP 104/64; PULSE 73; RESP 14; O2SAT 95
[2023-11-12 12:01] VITALS: BP 101/64; PULSE 68; RESP 16; O2SAT 94
[2023-11-12 12:11] VITALS: BP 108/71; PULSE 61; RESP 16; O2SAT 95
== END 2023-11-12 12:11 | disposition home or self-care (01) ==
LOC: OUTP 10:37
PROVIDERS: PCP Nurse Practitioner Family; Visit Provider Surgery
PROC: 0DJ08ZZ Inspection of Upper Intestinal Tract, Via Natural or Artificial Opening Endoscopic (ICD-10-PCS; CPT 43235; principal; 2023-11-12 11:30)
DX: R10.13 Epigastric pain (principal); K44.9 Diaphragmatic hernia without obstruction or gangrene; K29.70 Gastritis, unspecified, without bleeding
CPT/HCPCS: 43239; J7120

== ENCOUNTER 2024-03-26 10:16 | Outpatient (CLI) | payer MEDICAID, SELFPAY ==
[2024-03-26 10:40] LABS: Basophils # 0.1 K/mm3 (0-0.2); Basophils % 1.3 % (0.1-2.0); Eosinophils # 0.2 K/mm3 (0.0-0.4); Eosinophils % 1.8 % (0.1-12.0); Hematocrit 49.3 % (37.0-47.0); Hemoglobin 16.6 g/dL (12.2-16.2); Lymphocytes # 2.3 K/mm3 (0.7-4.5); Lymphocytes % 26.8 % (10-50); Mean Corpuscular HGB Conc 33.7 g/dL (31.8-35.4); Mean Corpuscular Hemoglobin 29.3 pg (27.0-31.2); Mean Platelet Volume 7.6 fl (7.4-10.4); Monocytes # 0.5 K/mm3 (0.1-1.0); Monocytes % 5.7 % (1.7-9.3); Neutrophils # 5.5 K/mm3 (1.8-7.8); Neutrophils % 64.4 % (37.0-80.0); Platelet Count 308 K/mm3 (142-424); Red Blood Count 5.67 M/mm3 (4.20-5.40); Red Cell Distribution Width 13.6 % (11.5-17.5); White Blood Count 8.5 K/mm3 (4.8-10.8)
[2024-03-26 11:14] LABS: Alanine Aminotransferase 17 U/L (12-78); Albumin Level 4.6 g/dl (3.5-5.0); Alkaline Phosphatase 63 U/L (38-126); Anion Gap 10.6 mEq/L (5-15); Aspartate Amino Transferase 25 U/L (14-36); Bilirubin,Direct 0.3 mg/dl (0.0-0.4); Bilirubin,Indirect 0.4 mg/dL (0.0-0.9); Bilirubin,Total 0.7 mg/dl (0.2-1.3); Bilirubin,Unconjugated 0.4 mg/dL (0.0-1.1); Blood Urea Nitrogen 8 mg/dl (7-17); Calcium 9.8 mg/dl (8.4-10.2); Carbon Dioxide 27 mmol/L (22.0-30.0); Chloride 108 mmol/L (98-107); Chol/HDL Ratio 2.9 (1-3.5); Cholesterol 133 mg/dl (140-200); Estimated Glomerular Filt Rate 66 ml/min (>60); GFR (African American) 80 ML/MIN (>60); Glucose 95 mg/dl (74-100); HDL Cholesterol 46 mg/dl (40-60); Potassium 4.6 mmoL/L (3.5-5.1); Sodium 141 mmol/L (136-145); Triglycerides 136 mg/dl (30-150); VLDL Cholesterol 27 mg/dL (0-40)
[2024-03-26 11:29] LABS: Free T4 (Free Thyroxine) 1.08 ng/dl (0.78-2.19)
[2024-03-26 11:45] LABS: Thyroid Stimulating Hormone 1.15 uIU/mL (0.465-4.68)
== END 2024-03-26 23:59 | disposition home or self-care (01) ==
LOC: LAB 10:17
PROVIDERS: PCP Nurse Practitioner Family; Visit Provider Nurse Practitioner Family
DX: E78.1 Pure hyperglyceridemia (principal); I10 Essential (primary) hypertension; E78.5 Hyperlipidemia, unspecified
CPT/HCPCS: 36415; 80048; 80061; 80076; 84439; 84443; 85025

== ENCOUNTER 2024-06-09 14:24 | Outpatient (CLI) | payer MEDICAID, SELFPAY ==
--- NOTE | 2024-06-09 14:31 | XR_ITS ---
PROCEDURE INFORMATION: Exam: XR Chest Exam date and time: 06/09/2024 2:33 PM Age: 54 years old Clinical indication: Cough; Additional info: Bronchitis TECHNIQUE: Imaging protocol: Radiologic exam of the chest. Views: 2 views. COMPARISON: CT LUNG SCREENING 06/13/2022 3:32 PM FINDINGS: Lungs: Central opacities with peribronchial cuffing, seen to advantage on the lateral chest radiograph. Pleural spaces: Unremarkable. No pleural effusion. No pneumothorax. Heart/Mediastinum: Unremarkable. No cardiomegaly. Bones/joints: Unremarkable. IMPRESSION: Combination of findings that suggests viral process versus reactive airways without evidence of consolidation.
[2024-06-09 17:34] LABS: Coronavirus 19, PCR Not Detected (NotDetected); Influenza A, PCR Not Detected (NotDetected); Influenza B, PCR Not Detected (NotDetected)
== END 2024-06-09 23:59 | disposition home or self-care (01) ==
LOC: RAD 14:25
PROVIDERS: PCP Nurse Practitioner Family; Visit Provider Nurse Practitioner Family
DX: J20.8 Acute bronchitis due to other specified organisms (principal); B96.89 Other specified bacterial agents as the cause of diseases classified elsewhere; R68.89 Other general symptoms and signs
CPT/HCPCS: 71046; 87636

== ENCOUNTER 2024-11-10 14:31 | Outpatient (CLI) | payer MEDICAID, SELFPAY ==
--- NOTE | 2024-11-10 14:33 | XR_ITS ---
FINAL REPORT CLINICAL HISTORY: Left Foot Pain COMPARISON: None FINDINGS: LEFT FOOT Three views demonstrate no acute fracture or dislocation. The joint spaces appear normal. No acute soft tissue abnormality is seen. IMPRESSION: No acute bony abnormality. Reviewed, Interpreted and Dictated by Dipesh Dietrich MD Transcribed by Larisa Nash Authenticated and [facility]
== END 2024-11-10 23:59 | disposition home or self-care (01) ==
LOC: RAD 14:32
PROVIDERS: PCP Nurse Practitioner Family; Visit Provider Nurse Practitioner Family
DX: M79.672 Pain in left foot (principal)
CPT/HCPCS: 73630

== ENCOUNTER 2024-11-17 16:14 | Outpatient (CLI) | payer MEDICAID, SELFPAY ==
--- NOTE | 2024-11-17 17:00 | MM_ITS ---
PROCEDURE INFORMATION: Exam: MG Bilateral Screening 3D Mammography Exam date and time: 11/17/2024 4:27 PM Age: 54 years old Clinical indication: Screening examination TECHNIQUE: Imaging protocol: Bilateral Screening tomosynthesis and 2D mammography including computer-aided detection (CAD) when performed. COMPARISON: 1. MG MM DIG SCREENING MAMM BI W/CAD 08/01/2020 1:30 PM 2. MG DMSB DIG MAMM-SCREEN SPARKLE 04/05/2014 4:00 PM FINDINGS: MAMMOGRAPHY: Breast composition: There are scattered areas of fibroglandular density. Mass: None. Architectural distortion: None. Calcifications: No suspicious calcifications. Asymmetric density: None. Skin thickening: None. Axillary adenopathy: None. IMPRESSION: No mammographic evidence of malignancy. Annual screening is recommended unless otherwise clinically indicated. ASSESSMENT: BI-RADS Category 1: Negative.
== END 2024-11-17 23:59 | disposition home or self-care (01) ==
LOC: RAD 16:14
PROVIDERS: PCP Nurse Practitioner Family; Visit Provider Nurse Practitioner Family
DX: Z12.31 Encounter for screening mammogram for malignant neoplasm of breast (principal); R92.323 Mammographic fibroglandular density, bilateral breasts
CPT/HCPCS: 77063; 77067

== ENCOUNTER 2025-02-08 10:53 | Outpatient (CLI) | payer MEDICAID, SELFPAY ==
[2025-02-08 15:05] LABS: Coronavirus 19, PCR Not Detected (NotDetected); Influenza A, PCR Not Detected (NotDetected); Influenza B, PCR Not Detected (NotDetected)
== END 2025-02-08 23:59 ==
LOC: LAB.DROPOF 02-09 09:30
PROVIDERS: PCP Family Medicine; Visit Provider Family Medicine
DX: R68.89 Other general symptoms and signs (principal)
CPT/HCPCS: 87636

== ENCOUNTER 2025-03-29 12:00 | Outpatient (CLI) | payer MEDICAID, SELFPAY ==
[2025-03-29 13:30] LABS: Hematocrit 48.3 % (37.0-47.0); Hemoglobin 16.2 g/dL (12.2-16.2); Immature Granulocytes % 0.4 %; Mean Corpuscular HGB Conc 33.5 g/dL (31.8-35.4); Mean Corpuscular Hemoglobin 30.0 pg (27.0-31.2); Mean Corpuscular Volume 89.4 fl (81-99); Nucleated Red Blood Cells % 0 %; Platelet Count 302 K/mm3 (142-424); Red Blood Count 5.40 M/mm3 (4.20-5.40); Red Cell Distribution Width-SD 39.6 fL; White Blood Count 8.2 K/mm3 (4.8-10.8)
[2025-03-29 13:54] LABS: Albumin Level 3.4 g/dl (3.5-5.0); Chloride 103 mmol/L (98-107); Potassium 4.1 mmoL/L (3.5-5.1); Sodium 137 mmol/L (136-145)
[2025-03-29 13:56] LABS: Blood Urea Nitrogen 7 mg/dl (7-17); Creatinine,Serum 0.90 mg/dl (0.52-1.04); Estimated Glomerular Filt Rate 65 ml/min (>60); GFR (African American) 79 ML/MIN (>60)
[2025-03-29 13:57] LABS: Alanine Aminotransferase 16 U/L (12-78); Alkaline Phosphatase 80 U/L (38-126); Anion Gap 9.1 mEq/L (5-15); Aspartate Amino Transferase 28 U/L (14-36); Bilirubin,Direct 0.0 mg/dl (0.0-0.4); Bilirubin,Indirect 0.4 mg/dL (0.0-0.9); Bilirubin,Total 0.4 mg/dl (0.2-1.3); Bilirubin,Unconjugated 0.5 mg/dL (0.0-1.1); Calcium 9.0 mg/dl (8.4-10.2); Carbon Dioxide 29 mmol/L (22.0-30.0); Cholesterol 151 mg/dl (140-200); Glucose 58 mg/dl (74-100); Total Protein,Serum 6.7 g/dl (6.3-8.2); Triglycerides 157 mg/dl (30-150)
[2025-03-29 13:58] LABS: HDL Cholesterol 51 mg/dl (40-60); Magnesium 2.0 mg/dl (1.6-2.3)
[2025-03-29 14:14] LABS: Free T4 (Free Thyroxine) 1.06 ng/dl (0.78-2.19)
[2025-03-29 14:28] LABS: Thyroid Stimulating Hormone 1.06 uIU/mL (0.465-4.68)
== END 2025-03-29 23:59 | disposition home or self-care (01) ==
LOC: LAB 12:02
PROVIDERS: PCP Nurse Practitioner Family; Visit Provider Nurse Practitioner Family
DX: E78.5 Hyperlipidemia, unspecified (principal); I10 Essential (primary) hypertension
CPT/HCPCS: 36415; 80048; 80061; 80076; 83735; 84439; 84443; 85025